=== PATIENT | male | born 1985 | race Caucasian/White ===

== ENCOUNTER 2021-08-23 12:44 | Outpatient (CLI) | payer BC ==
[~2021-08-23] VITALS: Ht 170.2 cm; Wt 75.0 kg
[2021-08-23] VITALS (8 sets, daily range): BP systolic 107–136; BP diastolic 68–76; PULSE 70–78; TEMP 99–99.2
[~2021-08-23 12:44] MED LIST: NO HOME MEDICATIONS
== END 2021-08-23 15:35 | disposition home or self-care (01) ==
LOC: EUO 12:44
DX: U07.1 COVID-19 (principal); E66.9 Obesity, unspecified; J98.4 Other disorders of lung
CPT/HCPCS: M0245